=== PATIENT | female | born 1980 ===

== ENCOUNTER → 2018-11-11 | Outpatient (CLI) | payer BC, OTHER ==
[~2018-11-11] MED LIST: COLACE 100100 MG/CAP PO; LOPRESSOR 225 MG/TAB PO; MOTRIN 600600 MG/TAB PO; PERCOCET 325 MG1 TA2 PO; PRENATAL1 TA1 PO; ZANTAC 150MG T150 MG PO
== END ==
LOC: MC.RAD 13:00
DX: N63.21 Unspecified lump in the left breast, upper outer quadrant (principal)

== ENCOUNTER 2019-04-16 05:24 | Outpatient (CLI) | payer BC, OTHER ==
[~2019-04-16] VITALS: Ht 162.6 cm; Wt 100.5 kg
--- NOTE | 2019-04-16 05:30 | NUR ---
0530- PATIENT PRESENTS TO LABOR AND DELIVERY WITH C/O CONTRACTIONS THAT STARTED AROUND 0130. EFM APPLIED. 0555- SVE FT/THICK AND HIGH
[2019-04-16 05:42] VITALS: BP 146/80; PULSE 75; TEMP 97.9
[2019-04-16] MEDS ORDERED: IRON TABLETS325 MG PO (05:51)
[2019-04-16 06:00] VITALS: BP 146/80; PULSE 75; TEMP 97.9
--- NOTE | 2019-04-16 06:15 | NUR ---
Bedside report received by Martine VARGAS. 0655: SVE-0/thick/-3 0700: called and updated and orders to give 1000ml of LR bolus and reassess after fluids. 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 Patient states that she has noticed that they have slowed down and are not as strong 0815: SVE-0/thick/-3 Dr. Salinas called and updated and orders to discharge home.
[2019-04-16 07:45] VITALS: BP 145/79; PULSE 72
[2019-04-16 08:15] VITALS: BP 132/64; PULSE 77
--- NOTE | 2019-04-16 08:22 | NUR ---
IV removed and patient tolerates well. 0830: Dr. Salinas at nurses station and shown strip and VS and okay with patient going home.
== END 2019-04-16 08:40 | disposition home or self-care (01) ==
LOC: LDRO 05:24
DX: O62.9 Abnormality of forces of labor, unspecified (principal); O09.523 Supervision of elderly multigravida, third trimester; Z3A.38 38 weeks gestation of pregnancy
CPT/HCPCS: J7120

== ENCOUNTER 2019-04-20 05:18 | Inpatient (IN) | payer BC, OTHER ==
[2019-04-20] VITALS (17 sets, daily range): BP systolic 121–154; BP diastolic 58–87; PULSE 69–87; TEMP 97.3–98.7
[~2019-04-20] VITALS: Ht 162.6 cm; Wt 100.5 kg
[~2019-04-20 05:18] MED LIST changes: +IRON TABLETS325 MG PO
[2019-04-20 05:53] LABS: HEMOGLOBIN 11.4 g/dl (12.5-16.0); MEAN CELL VOLUME 89 fl (80.0-100.0); MEAN CORPUSCULAR HEMOGLOBIN 31 pg (27.0-31.0); MEAN CORPUSCULAR HGB CONC 34 g/dl (33.0-37.0); MEAN PLATELET VOLUME 10.6 fl (7.4-10.4); PLATELET COUNT 189 K/mm3 (130-400); RED BLOOD COUNT 3.74 M/mm3 (4.10-5.30); REDCELL DISTRIBUTION WIDTH-CV 14.9 % (11.5-14.5)
[2019-04-20 05:59] LABS: HEMATOCRIT 33.4 % (37.0-47.0)
--- NOTE | 2019-04-20 06:30 | NUR ---
Report from Carla VARGAS to assume care of patient at this time.
[2019-04-20] MEDS ORDERED: ZOLOFT 100MG100 MG PO (06:32)
--- NOTE | 2019-04-20 07:20 | NUR ---
Patient ambulatory into OR with and this RN at side.
[2019-04-20 07:39] LABS: BAND 6 % (0-10); EOSINOPHIL 4 % (0-4); LYMPHOCYTE 18 % (20.0-51.0); NEUTROPHILS 68 % (42.0-75.2); PLATELET ESTIMATE NORMAL (NORMAL)
--- NOTE | 2019-04-20 08:40 | NUR ---
Patient into PACU via bed. This RN remains at bedside.
--- NOTE | 2019-04-20 09:10 | NUR ---
Patient into Room 209 via bed. Oriented to room and plan of care. supportive at bedside. Call light within reach.
--- NOTE | 2019-04-20 09:30 | NUR ---
Report to Dat VARGAS to assume care of patient at this time.
--- NOTE | 2019-04-20 12:53 | NUR ---
MOTHER AMBULATED TO NURSERY TO VISIT INFANT AND ATTEMPT .
--- NOTE | 2019-04-20 16:16 | NUR ---
MOTHER AMBULATED TO NURSERY TO VISIT INFANT AND BREASTFEED.
[2019-04-21 00:30] VITALS: BP 124/83; PULSE 70; TEMP 98.1
[2019-04-21 05:00] VITALS: BP 132/73; PULSE 80
[2019-04-21 08:52] VITALS: BP 135/65; PULSE 75; TEMP 98.4
--- NOTE | 2019-04-21 10:41 | NUR ---
Initial visit; Parents thanked Senior Analyst Programmer for offering congratulations and God's blessings for the of their new son.
[2019-04-21 12:15] VITALS: BP 121/55; PULSE 71
[2019-04-21 16:04] VITALS: BP 131/69; PULSE 98; TEMP 98.2
[2019-04-21 20:31] VITALS: BP 145/75; PULSE 85; TEMP 98.6
[2019-04-22 07:01] VITALS: BP 140/72; PULSE 82; TEMP 98.1
[2019-04-22] MEDS ORDERED: PERCOCET 325 MG1 TA2 PO (09:25)
[2019-04-22] MEDS ORDERED: IBU600 MG PO (09:25)
== END 2019-04-22 13:15 | disposition home or self-care (01) | DRG 786 ==
LOC: OB 05:18 → LDR 13:08 → OB 04-22 13:15
PROVIDERS: ADMIT Obstetrics & Gynecology
PROC: 10D00Z1 Extraction of Products of Conception, Low, Open Approach (ICD-10-PCS; principal; 2019-04-20)
DX: O34.211 Maternal care for low transverse scar from previous cesarean delivery (principal); O99.42 Diseases of the circulatory system complicating childbirth; I47.2 Ventricular tachycardia; O69.1XX0 Labor and delivery complicated by cord around neck, with compression, not applicable or unspecified; O99.02 Anemia complicating childbirth; D64.9 Anemia, unspecified; O99.343 Other mental disorders complicating pregnancy, third trimester; F32.9 Major depressive disorder, single episode, unspecified; Z3A.39 39 weeks gestation of pregnancy; Z37.0 Single live birth; Z88.0 Allergy status to penicillin; Z88.2 Allergy status to sulfonamides
CPT/HCPCS: J0171; J0690; J1885; J2270; J2370; J2405; J2590; J3010; J7120